=== PATIENT | female | born 1955 | race Caucasian/White ===

== ENCOUNTER 2019-03-06 17:19 | Inpatient (IN) | payer SELFPAY ==
[~2019-03-06] VITALS: Ht 144.8 cm; Wt 87.5 kg
[2019-03-06] MEDS ORDERED: KETOROLAC 15 MG INJ IV STA (17:20)
[2019-03-06] MEDS ORDERED: ONDANSETRON 4 MG INJ IV STA (17:20)
[2019-03-06] MEDS ORDERED: SOD CHLORIDE 0.9% 1,000 ML IV STA (17:20)
--- NOTE | 2019-03-06 17:24 | ERD ---
ER Documentation Chief Complaint Chief Complaint HPI This is a 64-year-old woman with a syncopal episode while standing in the elevat or, she fell forward and struck her forehead. The episode was witnessed and she had no seizure activity. She was not postictal and woke up without difficulty. She had no loss of bowel or bladder control, no vomiting, no complaints of chest pain or shortness of breath. Patient does have diabetes mellitus and states she has not eaten or drank much today. She denies recent fevers or chills, no d ysuria. ROS All systems reviewed and are negative except as per history of present illness. Allergies Allergies: Coded Allergies: Penicillins (Verified Allergy, Mild, 03/06/19) PMhx/Soc Obesity, diabetes mellitus FmHx Family History: diabetes Physical Exam Vitals Vital Signs Date Temp Pulse Resp B/P (MAP) Pulse Ox O2 O2 Flow FiO2 Time Delivery Rate 03/06/19 86 16 127/74 95 Room Air 20:58 (91) 03/06/19 76 18 121/71 97 Room Air 19:12 (88) 03/06/19 98.1 86 16 128/70 97 17:33 (89) Per nurse's records Physical Exam GENERAL: Well-developed, well-nourished, well-hydrated, in no apparent distress, looks nontoxic in appearance HEENT: Moist mucous membranes, pink conjunctiva, forehead abrasion, no cervical spine tenderness or step-off deformities, no goiter, no jaundice or icterus, extraocular movements intact without pain. NEURO: Alert and oriented 3, cranial nerves II through XII intact bilaterally, pupils equal round reactive to light, no focal deficits or facial asymmetry, sensation intact distally Strength 5/5 in upper and lower extremities bilaterally CARDIAC: Regular rate and rhythm, no murmurs rubs or gallops LUNGS: Clear bilaterally no wheezing crackles or stridor ABDOMEN: Soft nontender, no guarding, no rigidity, no rebound, no psoas sign no obturator sign. Normoactive bowel sounds SKIN: Warm and dry to touch, mild abrasion to the forehead, no lacerations, no ecchymosis, no target lesions, and without ulcers EXTREMITIES: No clubbing cyanosis or edema, calves are bilaterally symmetrical, no Homans sign, no popliteal cord sign. Distal pulses equal and bilateral PSYCH: Normal affect without agitation or irritability Result Diagram: 03/06/19 1808 03/06/191807 Results 24 hrs Laboratory Tests Test 03/06/19 17:58 03/06/19 18:08 Bedside Glucose 78 mg/dL White Blood Count 9.9 10^3/ul Red Blood Count 4.41 10^6/ul Hemoglobin 13.2 g/dl Hematocrit 39.8 % Mean Corpuscular Volume 90.2 fl Mean Corpuscular Hemoglobin 29.9 pg Mean Corpuscular Hemoglobin Concent 33.2 g/dl Red Cell Distribution Width 14.3 % Platelet Count 304 10^3/UL Mean Platelet Volume 9.5 fl Immature Granulocytes % 0.500 % Neutrophils % 58.8 % Lymphocytes % 28.6 % Monocytes % 8.7 % Eosinophils % 3.0 % Basophils % 0.4 % Nucleated Red Blood Cells % 0.0 /100WBC Immature Granulocytes # 0.050 10^3/ul Neutrophils # 5.8 10^3/ul Lymphocytes # 2.8 10^3/ul Monocytes # 0.9 10^3/ul Eosinophils # 0.3 10^3/ul Basophils # 0.0 10^3/ul Nucleated Red Blood Cells # 0.0 10^3/ul Sodium Level 140 mmol/L Potassium Level 3.2 mmol/L Chloride Level 100 mmol/L Carbon Dioxide Level 29 mmol/L Anion Gap 11 Blood Urea Nitrogen 19 mg/dl Creatinine 0.54 mg/dl Est Glomerular Filtrat Rate mL/min > 60 mL/min Glucose Level 87 mg/dl Calcium Level 9.8 mg/dl Total Bilirubin 0.3 mg/dl Direct Bilirubin 0.00 mg/dl Indirect Bilirubin 0.3 mg/dl Aspartate Amino Transf (AST/SGOT) 21 IU/L Alanine Aminotransferase (ALT/SGPT) 15 IU/L Alkaline Phosphatase 98 IU/L Troponin I < 0.012 ng/ml Total Protein 8.3 g/dl Albumin 4.2 g/dl Globulin 4.10 g/dl Albumin/Globulin Ratio 1.02 Lipase 201 U/L Current Medications Medications Dose Sig/Sundar Start Time Status Last (Trade) Ordered Route PRN Stop Time Admin Dose Reason Admin Sodium 1,000 ml @ Q1H STAT 03/06/19 DC 03/06/19 Chloride 1,000 mls/hr IV 17:20 19:03 03/06/19 18:19 Ondansetron 4 mg ONCE STAT 03/06/19 DC 03/06/19 HCl (Zofran IV 17:20 19:04 Inj) 03/06/19 17:22 Ketorolac 15 mg ONCE STAT 03/06/19 DC 03/06/19 Tromethamine IV 17:20 19:03 (Toradol) 03/06/19 17:22 Magnesium 50 ml @ 25 ONCE ONCE 03/06/19 DC 03/06/19 Sulfate mls/hr IVPB 18:00 19:04 03/06/19 19:59 IV Flush 3 ml PER 03/06/19 (NS 3 ml) PROTOCOL IV 19:30 Ondansetron 4 mg Q6H PRN 03/06/19 HCl (Zofran IV 19:30 Inj) NAUSEA/VOMITI NG 650 mg Q6H PRN 03/06/19 Acetaminophen PO .PAIN 1-3 19:30 (Tylenol OR TEMP Tab) 1 tab Q6H PRN 03/06/19 Acetaminophen PO .MOD PAIN 19:30 / 4-6 Hydrocodone Bitart ([place] (5/325)) Morphine 2 mg Q4H PRN 03/06/19 Sulfate IV .SEVERE 19:30 (morphine) PAIN 7-10 Docusate 100 mg Q12H PRN 03/06/19 Sodium PO 19:30 (Colace) .CONSTIPATION Magnesium 30 ml DAILY PRN 03/06/19 Hydroxide PO 19:30 (Milk Of Mag) .CONSTIPATION Heparin 5,000 unit Q12 SC 03/06/19 Sodium 21:00 (Porcine) (Heparin (5000 Units/1ml)) Sodium 1,000 ml @ [id number] IV 03/06/19 Chloride 75 mls/hr 19:28 Lorazepam 0.5 mg Q6H PRN 03/06/19 (Ativan) IV ANXIETY 19:30 Albuterol/ 3 ml Q4H RESP 03/06/19 Ipratropium THERAPY PRN 19:30 (Duoneb) HHN SHORTNESS OF BREATH 1 tab Q5M PRN 03/06/19 Nitroglycerin SL ANGINA 19:30 (Nitroglyceri n (Sl Tab) 0.4 Mg) Procedures/MDM IV line was established patient was placed on electrician helper rhythm strip revealed a sinus rhythm at about 80 bpm with upright P and T waves. Patient was afebrile I administered 500 cc normal saline IV, Toradol 15 mg IV, Zofran 4 mg IV Chest X-ray 1V Interpreted by me: Soft Tissue: No acute abnormalities Bones: No acute abnormalities Mediastinum/Cardiac Silhouette/Lungs: No acute abnormalities CT scan of the brain was negative for acute bleed mass or shift EKG performed, read by me revealed a normal sinus rhythm 86 bpm, normal axis, right ventricular conduction delay QRS duration 100 ms, prolonged QT of 576 ms, no concerning ST elevations or depressions noted I administered magnesium 2 g IV for prolonged QT. CBC and electrolytes are normal, liver function tests were normal, troponin was negative. Patient admitted to telemetry setting. Departure Diagnosis: Primary Impression: Syncope Syncope type: unspecified Qualified Codes: R55 - Syncope and collapse Additional Impression: Prolonged QT syndrome Condition: ERICK Osullivan MD Mar 06, 2019 17:24
[2019-03-06] MEDS ORDERED: MAGNESIUM SULFATE 2 GM/50 ML 50 ML IVPB ONE (18:00)
[2019-03-06] MEDS ORDERED: NITROGLYCERIN (SL) 0.4 MG TAB SL PRN (19:30)
[2019-03-06] MEDS ORDERED: ACETAMINOPHEN 325 MG TAB PO PRN (19:30)
[2019-03-06] MEDS ORDERED: NACL 0.9% 3 ML SYG IV SCH (19:30)
[2019-03-06] MEDS ORDERED: MAGNESIUM HYDROXIDE 30ML CUP PO PRN (19:30)
[2019-03-06] MEDS ORDERED: ONDANSETRON 4 MG INJ IV PRN (19:30)
[2019-03-06] MEDS ORDERED: morphine 2 MG INJ IV PRN (19:30)
[2019-03-06] MEDS ORDERED: DOCUSATE SODIUM 100 MG CAP PO PRN (19:30)
[2019-03-06] MEDS ORDERED: ALBUTEROL/IPRATROPIUM (NEB) 3 ML AMP HHN PRN (19:30)
[2019-03-06] MEDS ORDERED: LORAZEPAM 2 MG INJ IV PRN (19:30)
[2019-03-06] MEDS ORDERED: HYDROCODONE/APAP (5/325) TAB PO PRN (19:30)
[2019-03-06 21:48] VITALS: PULSE 79
[2019-03-06 21:51] VITALS: Ht 144.8 cm; Wt 87.5 kg
[2019-03-06 21:54] VITALS: BP 124/64; PULSE 75; RESP 20
[2019-03-06] MEDS: SOD CHLORIDE 0.45% 1,000 ML IV SCH (22:11)
[2019-03-06] MEDS: HEPARIN 5,000 UNIT/1 ML VIAL SC SCH (22:34)
[2019-03-07] VITALS (9 sets, daily range): BP systolic 117–134; BP diastolic 62–78; PULSE 66–88; RESP 18–20
--- NOTE | 2019-03-07 07:37 | HP ---
Date/Time of Note Date/Time of Note DATE: 03/06/19 TIME: 23:00 Assessment/Plan VTE Prophylaxis Pharmacological prophylaxis: heparin Lines/Catheters IV Catheter Type (from Nrsg): Peripheral IV Assessment/Plan Assessment/Plan 1. Syncope: Likely vasovagal -Head CT and EKG nondiagnostic -Continue telemetry monitoring -Check orthostatics -2D echo and carotid Doppler ultrasound -PT eval 2. Hypertension: BP was in acceptable range. Family to bring home medication 3. Type 2 diabetes: Check A1c. Family to bring home medication. Insulin while in house 4. Hypokalemia: Repleted Result Diagram: 03/07/19 0609 03/07/19 0609 Results 24hrs Laboratory Tests Test 03/06/19 17:58 03/06/19 18:08 03/07/19 06:09 Bedside Glucose 78 White Blood Count 9.9 6.8 # Red Blood Count 4.41 4.13 L Hemoglobin 13.2 12.4 Hematocrit 39.8 38.2 Mean Corpuscular Volume 90.2 92.5 Mean Corpuscular Hemoglobin 29.9 30.0 Mean Corpuscular Hemoglobin Concent 33.2 32.5 Red Cell Distribution Width 14.3 14.5 Platelet Count 304 297 Mean Platelet Volume 9.5 9.8 Immature Granulocytes % 0.500 H 0.300 Neutrophils % 58.8 56.9 Lymphocytes % 28.6 32.1 Monocytes % 8.7 7.1 Eosinophils % 3.0 3.2 Basophils % 0.4 0.4 Nucleated Red Blood Cells % 0.0 0.0 Immature Granulocytes # 0.050 H 0.020 Neutrophils # 5.8 3.9 Lymphocytes # 2.8 2.2 Monocytes # 0.9 0.5 Eosinophils # 0.3 0.2 Basophils # 0.0 0.0 Nucleated Red Blood Cells # 0.0 0.0 Sodium Level 140 140 Potassium Level 3.2 L 3.7 Chloride Level 100 104 Carbon Dioxide Level 29 29 Anion Gap 11 7 Blood Urea Nitrogen 19 16 Creatinine 0.54 0.48 Est Glomerular Filtrat Rate mL/min > 60 > 60 Glucose Level 87 149 # Calcium Level 9.8 9.0 Total Bilirubin 0.3 Direct Bilirubin 0.00 Indirect Bilirubin 0.3 Aspartate Amino Transf (AST/SGOT) 21 Alanine Aminotransferase (ALT/SGPT) 15 Alkaline Phosphatase 98 Troponin I < 0.012 Total Protein 8.3 H Albumin 4.2 Globulin 4.10 H Albumin/Globulin Ratio 1.02 Lipase 201 Hemoglobin A1c 6.6 H Phosphorus Level 4.2 Magnesium Level 2.0 Triglycerides Level 173 H Cholesterol Level 138 LDL Cholesterol, Calculated 71 HDL Cholesterol 32 L Cholesterol/HDL Ratio 4.3 Thyroid Stimulating Hormone (TSH) Pending HPI/ROS Admit Date/Time Admit Date/Time Mar 06, 2019 at 18:26 Hx of Present Illness Patient is a 64-year-old female with a history of hypertension and type 2 diabetes who was admitted to the hospital after code green was activated because of a syncopal episode. She was visiting family member and she was heading to the elevator she had a syncopal episode hitting her forehead. According to the daughter at the bedside, patient was pointing at the floor commenting how ugly the floor was when she blacked out. Denied chest pain, lightheadedness, palpitation or any other symptoms. Patient had a head CT without acute findings. EKG without ST-T wave abnormalities. Daughter reported that a patient has had symptoms like this in the past. Family to bring patient's home medications. PMH/Family/Social Past Medical History Medical History: other (HPI) Medications Current Medications IV Flush (NS 3 ml) 3 ml PER PROTOCOL IV ; Start 03/06/19 at 19:30 Ondansetron HCl (Zofran Inj) 4 mg Q6H PRN IV NAUSEA/VOMITING; Start 03/06/19 at 19:30 Acetaminophen (Tylenol Tab) 650 mg Q6H PRN PO .PAIN 1-3 OR TEMP Last administered on 03/07/19at 06:09; Admin Dose 650 MG; Start 03/06/19 at 19:30 Acetaminophen/ Hydrocodone Bitart ([place] (5/325)) 1 tab Q6H PRN PO .MOD PAIN 4- 6; Start 03/06/19 at 19:30 Morphine Sulfate (morphine) 2 mg Q4H PRN IV .SEVERE PAIN 7-10; Start 03/06/19 at 19:30 Docusate Sodium (Colace) 100 mg Q12H PRN PO .CONSTIPATION; Start 03/06/19 at 19:30 Magnesium Hydroxide (Milk Of Mag) 30 ml DAILY PRN PO .CONSTIPATION; Start 03/06/19 at 19:30 Heparin Sodium (Porcine) (Heparin (5000 Units/1ml)) 5,000 unit Q12 SC Last administered on 03/06/19at 22:34; Admin Dose 5,000 UNIT; Start 03/06/19 at 21:00 Sodium Chloride 1,000 ml @ 75 mls/hr [id number] IV Last administered on 03/06/19at 22:11; Admin Dose 75 MLS/HR; Start 03/06/19 at 19:28 Lorazepam (Ativan) 0.5 mg Q6H PRN IV ANXIETY; Start 03/06/19 at 19:30 Albuterol/ Ipratropium (Duoneb) 3 ml Q4H RESP THERAPY PRN HHN SHORTNESS OF BREATH; Start 03/06/19 at 19:30 Nitroglycerin (Nitroglycerin (Sl Tab) 0.4 Mg) 1 tab Q5M PRN SL ANGINA; Start 03/06/19 at 19:30 Coded Allergies: Penicillins (Verified Allergy, Mild, 03/06/19) Past Surgical History Past Surgical Hx: other (See HPI) Family History Significant Family History: no pertinent family hx Social History Smoking Status: Never smoker Drug Use: none Exam/Review of Systems Vital Signs Vitals Vital Signs Date Temp Pulse Resp B/P (MAP) Pulse Ox O2 O2 Flow FiO2 Time Delivery Rate 03/07/19 72 04:48 03/07/19 97.7 20 117/62 96 04:00 (80) 134/69 (90) 121/73 (89) 03/06/19 Room Air 21:54 Intake and Output 03/06/19 03/06/19 03/07/19 1414:59 22:59 06:59 IntakeIntake Total 1000 ml BalanceBalance 1000 ml Exam Constitutional: alert, oriented, well developed Head: normocephalic, atraumatic Eyes: EOMI Respiratory: clear to auscultation, normal air movement Cardiovascular: regular rate and rhythm, nl pulses Gastrointestinal: soft, non-tender Extremities: normal pulses ALISTAIR ARCE MD Mar 07, 2019 07:37
[2019-03-07] MEDS: SOD CHLORIDE 0.45% 1,000 ML IV SCH (08:48)
[2019-03-07] MEDS: HEPARIN 5,000 UNIT/1 ML VIAL SC SCH (09:07)
--- NOTE | 2019-03-07 11:04 | PDOCDIS ---
Discharge Instructions DIAGNOSIS Discharge Diagnosis 1. Syncope 2. Hypertension 3. Type 2 diabetes 4. Hypokalemic CONDITION [id number] Patient Condition: [id number] Stable HOME CARE INSTRUCTIONS: [id number] Diet Instructions: Ebmfa2p Low Fat /Cholesterol FOLLOW UP/APPOINTMENTS Follow-up Plan 1. Follow up with your primary care provider in one week NUHA GREY NP Mar 07, 2019 11:04
[2019-03-07] MEDS ORDERED: PRO20 PO (11:11)
[2019-03-07] MEDS ORDERED: CALC-634 PO (11:11)
[2019-03-07] MEDS ORDERED: ATOR40TA68 PO (11:11)
[2019-03-07] MEDS ORDERED: PIOG15TA12 PO (11:11)
[2019-03-07] MEDS ORDERED: MTF1000T PO (11:11)
--- NOTE | 2019-03-07 11:13 | PN ---
Date/Time of Note Date/Time of Note DATE: 03/07/19 TIME: 11:09 Assessment/Plan VTE Prophylaxis SCD applied (from Nsg): Yes Pharmacological prophylaxis: heparin Lines/Catheters IV Catheter Type (from Nrsg): Peripheral IV Assessment/Plan Hospital Course 1. Syncope: Likely vasovagal -Head CT and EKG nondiagnostic -2D echo pending - carotid Doppler ultrasound -PT eval 2. Hypertension: -BP was in acceptable range. - resume patient's home medication 3. Type 2 diabetes: - A1c: 6.6. - Insulin while in house 4. Hypokalemia: - Repleted - monitor level Disposition. Appears overall stable. Follow-up with PT. Anticipate discharge within the next 24 hours if medically stable. Discussed POC with Dr. Chavez Result Diagram: 03/07/19 0609 03/07/19 0609 Results 24hrs Laboratory Tests Test 03/06/19 17:58 03/06/19 18:08 03/07/19 06:09 Bedside Glucose 78 White Blood Count 9.9 6.8 # Red Blood Count 4.41 4.13 L Hemoglobin 13.2 12.4 Hematocrit 39.8 38.2 Mean Corpuscular Volume 90.2 92.5 Mean Corpuscular Hemoglobin 29.9 30.0 Mean Corpuscular Hemoglobin Concent 33.2 32.5 Red Cell Distribution Width 14.3 14.5 Platelet Count 304 297 Mean Platelet Volume 9.5 9.8 Immature Granulocytes % 0.500 H 0.300 Neutrophils % 58.8 56.9 Lymphocytes % 28.6 32.1 Monocytes % 8.7 7.1 Eosinophils % 3.0 3.2 Basophils % 0.4 0.4 Nucleated Red Blood Cells % 0.0 0.0 Immature Granulocytes # 0.050 H 0.020 Neutrophils # 5.8 3.9 Lymphocytes # 2.8 2.2 Monocytes # 0.9 0.5 Eosinophils # 0.3 0.2 Basophils # 0.0 0.0 Nucleated Red Blood Cells # 0.0 0.0 Sodium Level 140 140 Potassium Level 3.2 L 3.7 Chloride Level 100 104 Carbon Dioxide Level 29 29 Anion Gap 11 7 Blood Urea Nitrogen 19 16 Creatinine 0.54 0.48 Est Glomerular Filtrat Rate mL/min > 60 > 60 Glucose Level 87 149 # Calcium Level 9.8 9.0 Total Bilirubin 0.3 Direct Bilirubin 0.00 Indirect Bilirubin 0.3 Aspartate Amino Transf (AST/SGOT) 21 Alanine Aminotransferase (ALT/SGPT) 15 Alkaline Phosphatase 98 Troponin I < 0.012 Total Protein 8.3 H Albumin 4.2 Globulin 4.10 H Albumin/Globulin Ratio 1.02 Lipase 201 Hemoglobin A1c 6.6 H Phosphorus Level 4.2 Magnesium Level 2.0 Triglycerides Level 173 H Cholesterol Level 138 LDL Cholesterol, Calculated 71 HDL Cholesterol 32 L Cholesterol/HDL Ratio 4.3 Thyroid Stimulating Hormone (TSH) Pending Subjective 24 Hr Interval Summary Free Text/Dictation comfortable at present Exam/Review of Systems Exam Vitals Vital Signs Date Temp Pulse Resp B/P (MAP) Pulse Ox O2 O2 Flow FiO2 Time Delivery Rate 03/07/19 70 08:00 03/07/19 98.2 20 133/78 98 07:47 (96) 03/06/19 Room Air 21:54 Intake and Output 03/06/19 03/06/19 03/07/19 1515:00 23:00 07:00 IntakeIntake Total 1000 ml BalanceBalance 1000 ml Constitutional: alert, oriented, obese Psych: no complaints Neck: supple, non-tender Respiratory: clear to auscultation Cardiovascular: regular rate and rhythm Gastrointestinal: soft, non-tender Musculoskeletal: other (bruise right arm) Neurological: HEEL SEAM RUBBER II-XII intact, nl mental status, nl speech Results Results 24hrs Laboratory Tests Test 03/06/19 17:58 03/06/19 18:08 03/07/19 06:09 Bedside Glucose 78 White Blood Count 9.9 6.8 # Red Blood Count 4.41 4.13 L Hemoglobin 13.2 12.4 Hematocrit 39.8 38.2 Mean Corpuscular Volume 90.2 92.5 Mean Corpuscular Hemoglobin 29.9 30.0 Mean Corpuscular Hemoglobin Concent 33.2 32.5 Red Cell Distribution Width 14.3 14.5 Platelet Count 304 297 Mean Platelet Volume 9.5 9.8 Immature Granulocytes % 0.500 H 0.300 Neutrophils % 58.8 56.9 Lymphocytes % 28.6 32.1 Monocytes % 8.7 7.1 Eosinophils % 3.0 3.2 Basophils % 0.4 0.4 Nucleated Red Blood Cells % 0.0 0.0 Immature Granulocytes # 0.050 H 0.020 Neutrophils # 5.8 3.9 Lymphocytes # 2.8 2.2 Monocytes # 0.9 0.5 Eosinophils # 0.3 0.2 Basophils # 0.0 0.0 Nucleated Red Blood Cells # 0.0 0.0 Sodium Level 140 140 Potassium Level 3.2 L 3.7 Chloride Level 100 104 Carbon Dioxide Level 29 29 Anion Gap 11 7 Blood Urea Nitrogen 19 16 Creatinine 0.54 0.48 Est Glomerular Filtrat Rate mL/min > 60 > 60 Glucose Level 87 149 # Calcium Level 9.8 9.0 Total Bilirubin 0.3 Direct Bilirubin 0.00 Indirect Bilirubin 0.3 Aspartate Amino Transf (AST/SGOT) 21 Alanine Aminotransferase (ALT/SGPT) 15 Alkaline Phosphatase 98 Troponin I < 0.012 Total Protein 8.3 H Albumin 4.2 Globulin 4.10 H Albumin/Globulin Ratio 1.02 Lipase 201 Hemoglobin A1c 6.6 H Phosphorus Level 4.2 Magnesium Level 2.0 Triglycerides Level 173 H Cholesterol Level 138 LDL Cholesterol, Calculated 71 HDL Cholesterol 32 L Cholesterol/HDL Ratio 4.3 Thyroid Stimulating Hormone (TSH) Pending Medications Medication Current Medications IV Flush (NS 3 ml) 3 ml PER PROTOCOL IV ; Start 03/06/19 at 19:30 Ondansetron HCl (Zofran Inj) 4 mg Q6H PRN IV NAUSEA/VOMITING; Start 03/06/19 at 19:30 Acetaminophen (Tylenol Tab) 650 mg Q6H PRN PO .PAIN 1-3 OR TEMP Last administered on 03/07/19at 06:09; Admin Dose 650 MG; Start 03/06/19 at 19:30 Acetaminophen/ Hydrocodone Bitart ([place] (5/325)) 1 tab Q6H PRN PO .MOD PAIN 4- 6; Start 03/06/19 at 19:30 Morphine Sulfate (morphine) 2 mg Q4H PRN IV .SEVERE PAIN 7-10; Start 03/06/19 at 19:30 Docusate Sodium (Colace) 100 mg Q12H PRN PO .CONSTIPATION; Start 03/06/19 at 19:30 Magnesium Hydroxide (Milk Of Mag) 30 ml DAILY PRN PO .CONSTIPATION; Start 03/06/19 at 19:30 Heparin Sodium (Porcine) (Heparin (5000 Units/1ml)) 5,000 unit Q12 SC Last administered on 03/07/19at 09:07; Admin Dose 5,000 UNIT; Start 03/06/19 at 21:00 Sodium Chloride 1,000 ml @ 75 mls/hr [id number] IV Last administered on 03/06/19at 22:11; Admin Dose 75 MLS/HR; Start 03/06/19 at 19:28 Lorazepam (Ativan) 0.5 mg Q6H PRN IV ANXIETY; Start 03/06/19 at 19:30 Albuterol/ Ipratropium (Duoneb) 3 ml Q4H RESP THERAPY PRN HHN SHORTNESS OF BREATH; Start 03/06/19 at 19:30 Nitroglycerin (Nitroglycerin (Sl Tab) 0.4 Mg) 1 tab Q5M PRN SL ANGINA; Start 03/06/19 at 19:30 Fish Oil (Fish Oil) 1,000 mg BID PO ; Start 03/07/19 at 21:00 Gemfibrozil (Lopid) 600 mg BID PO ; Start 03/07/19 at 21:00 NUHA GREY NP Mar 07, 2019 11:13
[2019-03-07] MEDS ORDERED: PULM90 INHALATION (11:18)
[2019-03-07] MEDS ORDERED: INDA1.25 PO (11:18)
[2019-03-07] MEDS ORDERED: ALBU18HF INHALATION (11:18)
[2019-03-07] MEDS ORDERED: IBUP-1545 PO (11:18)
[2019-03-07] MEDS ORDERED: LOSA25TA12 PO (11:18)
[2019-03-07] MEDS ORDERED: LORA10CA PO (11:18)
[2019-03-07] MEDS ORDERED: POTA-57 PO (11:18)
[2019-03-07] MEDS ORDERED: GLIP5TAB13 PO (11:18)
[2019-03-07] MEDS ORDERED: ASPI-817 PO (11:18)
--- NOTE | 2019-03-07 13:52 | RADRPT ---
Echocardiogram Report Patient Name: AIDA PINEDAPatient ID: [id number] : 1955 (64y )Study Date: 03/07/2019 8:05:20 AM Gender: FAccession #: [id number] Tech: Rishi Cruz [facility] Location: [facility] Ref.Physician: LUPE VINCENT Height(Cm): BSA: Weight(Kg): Quality: Technically Difficult StudyOrder Physician: LUPE VINCENT Account #: Procedures: Echocardiographic Report: Transthoracic echocardiogram with complete 2D, M-Mode, and doppler examination. Indications: Syncope. Measurements: 2D/M Mode Doppler Measurement Value Normal Range Measurement Value Normal Range LVIDd 2D 4.7 [ 3.8 - 5.2 ] cm AV Peak [place] 1.8 [ 100.0 - 170.0 ] cm/se c LVIDs 2D 3.6 [ 2.2 - 3.5 ] cm AV Peak PG 12.0 [ 2.0 - 9.0 ] mmHg LVPWd 2D 1.0 [ 0.6 - 0.9 ] cm LVOT Peak [place] 0.7 [ 70.0 - 110.0 ] cm/sec IVSd 2D 0.9 [ 0.6 - 0.9 ] cm LVOT Peak PG 2.0 [ 2.0 - 6.0 ] mmHg AoR Diam 2D 2.5 [ 2.3 - 3.1 ] cm MV E Peak [place] 0.6 [ 60.0 - 130.0 ] cm/sec EDV 2D 101.0 [ 46.0 - 106.0 ] ml MV A Peak [place] 0.7 [ 100.0 - 120.0 ] cm/se c ESV 2D 54.1 [ 14.0 - 42.0 ] ml MV E/A 0.9 [ 0.8 - 1.5 ] ratio EF 2D 46.4 [ 54.0 - 74.0 ] percent MV PHT 46.0 [ 20.0 - 100.0 ] msec LA Dimen 2D 3.2 [ 2.7 - 3.8 ] cm MV Decel Time 158 [ 104 - 258 ] msec MV Decel [place] 4 Lat E` Chato 0.1 [ 10.0 - 15.0 ] cm/sec Lateral E/E` 6.8 [ 1.0 - 2.0 ] ratio Med E` Chat[place] 0.1 cm/sec MV E/A 0.9 [ 0.8 - 1.5 ] ratio MVA PHT 4.8 [ 2.0 - 4.0 ] cm2 Findings: Left Ventricle: Normal left ventricular systolic function. Normal left ventricular cavity size. Normal left ventricular wall thickness. Ejection fraction is visually estimated at 45-50 %. Tissue Doppler/Mitral Doppler indices are consistent with impaired relaxation (Stage I diastolic dysfunction). Right Ventricle: Normal right ventricular size. Normal right ventricular systolic function. Left Atrium: The left atrium is normal in size. Right Atrium: The right atrium is normal in size. Atrial Septum: Normal atrial septum. Ventricular septum: Normal/intact ventricular septum. Mitral Valve: Normal appearance of the mitral valve. Aortic Valve: Normal appearance of the aortic valve. No aortic regurgitation. Tricuspid Valve: Normal appearance of the tricuspid valve. There is trace tricuspid regurgitation. Pulmonic Valve: Normal pulmonic valve appearance. No evidence of pulmonic regurgitation. Pericardium: Normal pericardium with no significant pericardial effusion. Aorta: Normal aortic root. IVC: Normal size and normal respiratory collapse consistent with normal right atrial pressure. Conclusions: Normal left ventricular systolic function. Normal left ventricular cavity size. Normal left ventricular wall thickness. Ejection fraction is visually estimated at 45-50 %. Tissue Doppler/Mitral Doppler indices are consistent with impaired relaxation (Stage I diastolic dysfunction). Electronically Signed By: Dominic Viveros 2019-03-07 13:52:15 PDT
[2019-03-07] MEDS ORDERED: ACCU-CHEK XX SCH (17:25)
[2019-03-07] MEDS ORDERED: metFORMIN 500 MG TAB PO SCH (17:55)
[2019-03-07] MEDS ORDERED: FISH OIL 1,000 MG CAP PO SCH (21:00)
[2019-03-07] MEDS ORDERED: CALCIUM/VITAMIN D (500/200) TAB PO SCH (21:00)
[2019-03-07] MEDS ORDERED: GEMFIBROZIL 600 MG TAB PO SCH (21:00)
[2019-03-07] MEDS ORDERED: MOMETASONE 0.24 GM INHALER INH SCH (21:00)
[2019-03-07] MEDS ORDERED: ATORVASTATIN 40 MG TAB PO SCH (21:00)
[2019-03-08] MEDS ORDERED: LOSARTAN 25 MG TAB PO SCH (09:00)
[2019-03-08] MEDS ORDERED: ASPIRIN (EC) 81 MG TAB PO SCH (09:00)
[2019-03-08] MEDS ORDERED: INDAPAMIDE 2.5 MG PO SCH (09:00)
--- NOTE | 2019-03-14 11:07 | DS ---
Date/Time of Note Date/Time of Note DATE: 03/14/19 TIME: 11:03 Discharge Summary Admission/Discharge Info Admit Date/Time Mar 06, 2019 at 18:26 Discharge Date/Time Mar 07, 2019 at 16:20 Discharge Diagnosis 1. Syncope 2. Hypertension 3. Type 2 diabetes 4. Hypokalemic Patient Condition: Stable Hospital Course This is a 64-year-old female with history of hypertension, diabetes, came to the hospital after reported code green was activated due to suspect syncopal episode. Patient was visiting a family member and she was taken to the elevator when she had a suspect syncopal episode hitting her forehead. According to report patient was commenting about the floor in the hospital and blacked out. She denied any chest pain lightheadedness or palpitations. She had a CT scan of the head with no acute findings. EKG also did not reveal any kind of ST wave abnormalities. Patient did have echocardiogram with EF of 45 to 50% with stage I diastolic dysfunction. She did report that she followed up with her primary care physician for this. During her course of stay there were no further reports of syncope. Carotid Doppler ultrasound with no significant findings. She was able to ambulate. Suspect syncopal episode may have been from vasovagal. She was otherwise optimized medically with antihypertensives for high blood pressure and insulin in house for her diabetes. We did monitor her electrolytes and repleted them as needed. During her course of stay she did improve. The plan of care was discussed with the patient and she did verbalized understanding. On the day of discharge patient was in stable condition Discussed POC with Dr. Chavez Home Meds Reported Medications Albuterol Sulfate* (Ventolin HFA*) 18 Gm Hfa.aer.ad, 2 PUFF INHALATION Q6H, #1 INHALER 03/07/19 Budesonide* (Pulmicort* Flexhaler) 90 Mcg Aer.pow.ba, 2 PUFF INHALATION BID, #1 EA 03/07/19 Loratadine* (Claritin*) 10 Mg Capsule, 10 MG PO DAILY, CAP 03/07/19 Losartan Potassium* (Losartan Potassium*) 25 Mg Tablet, 25 MG PO DAILY, TAB 03/07/19 Aspirin* (Aspirin* EC) 81 Mg Tablet.dr, 81 MG PO DAILY, TAB 03/07/19 Indapamide* (Indapamide*) 1.25 Mg Tablet, 1.25 MG PO DAILY, TAB 03/07/19 Ibuprofen* (Ibuprofen*) 800 Mg Tab, 800 MG PO TID PRN for PAIN, TAB 03/07/19 Potassium Chloride* (Klor-Con*) 20 Meq Tabsr, 20 MEQ PO DAILY, TAB.SA 03/07/19 Glipizide* (Glipizide*) 5 Mg Tablet, 5 MG PO AC BREAKFAST, TAB 03/07/19 Nifedipine* (Procardia*) 20 Mg Cap, 60 MG PO DAILY, CAP 03/07/19 Calcium Carbonate/Vitamin D3 (OYSTERCAL-D 500 MG-400 UNIT TB) 1 Each Tablet, 1 EACH PO TID, TAB 03/07/19 Atorvastatin* (Atorvastatin*) 40 Mg Tablet, 40 MG PO QHS, #30 TAB 03/07/19 Pioglitazone Hcl* (Actos*) 15 Mg Tablet, 15 MG PO DAILY, #30 TAB 03/07/19 Metformin* (Glucophage*) 1,000 Mg Tablet, 1000 MG PO BID, #60 TAB 03/07/19 Follow-up Plan 1. Follow up with your primary care provider in one week Primary Care Provider Care Physician No Primary Time spent on discharge: > 30 minutes NUHA GREY NP Mar 14, 2019 11:07
== END 2019-03-07 16:20 | disposition home or self-care (01) | DRG 312 ==
LOC: E/R 17:19 → TEL 18:26
PROVIDERS: ADMIT Internal Medicine; ATTEND Internal Medicine
DX: R55 Syncope and collapse (principal); I45.81 Long QT syndrome; I10 Essential (primary) hypertension; E11.9 Type 2 diabetes mellitus without complications; E87.6 Hypokalemia
CPT/HCPCS: 36415; 70450; 71045; 80048; 80053; 80061; 82962; 83036; 83690; 83735; 84100; 84439; 84443; 84484; 85025; 93005; 93306; 93880; 97162; J1644; J1885; J2405; J3475; J7030